=== PATIENT | male | born 1995 | race African-American/Black ===

== ENCOUNTER 2023-11-06 13:55 | Outpatient (CLI) | payer OTHER ==
--- NOTE | 2023-11-06 14:33 | Sleep Patient Instructions ---
Sleep Center Visit Summary - Patient Visit Information Reason for Visit: Initial consult for evaluation of sleep disordered breathing and other sleep issues. - Patient Instructions Instructions Attached: Sleep Study, Sleep Study Home Monitor Additional Instructions: You will be completing a sleep study, either an in-lab polysomnography (PSG) or home sleep study (HST). You will follow-up in the sleep care office after the sleep study is completed to hear the results and talk about therapy, if needed. You will be called by our office staff to schedule this appointment, but you may contact us with any questions. - Clinic Information Contact: [facility] [address] [place] [id number] [email or web address] T: [phone]
[2023-11-06 14:36] VITALS: BP 105/74; O2SAT 98
--- NOTE | 2023-11-06 14:36 | SLEEP CARE CONSULTATION ---
Information from patient questionnaire entered by Renetta Hurley. I have reviewed and concur with the information entered by Renetta Hurley. This document represents the service I personally performed and the decisions made by me, Anastasia Fitzgerald ARNP. History of Present Illness Service Date and Time: 11/06/2023 1355 Reason for Visit: New patient Chief Complaint: reports: Unrefreshed sleep, Snoring, Excessive daytime sleepiness, Frequent awakenings at night Date of Onset: 4-5 months Usual bedtime: 9PM (now, 11 PM) Time it takes to fall asleep: 60MIN+ Snores at night: Yes Observed to quit breathing while asleep: Yes Sleeps alone due to snoring: No Number of times waking at night: 2-3 Reasons for waking at night: reports: Snoring, Gasping for air, Bathroom ( ), Other (NOISE) Toss, Turn, or Twitch while sleeping: Yes Recalls having dreams: No Usually gets out of bed at: [id number] (now, [id number]) Feels refreshed in the morning: No Morning headache: Yes (2 times a week; last about 30 minutes) Sleepy or fatigued during the day: Yes Ever fallen asleep while driving: No Takes day naps: No Dreams during day naps: No Prior sleep studies: No Additional HPI information: I had the pleasure of seeing OSMEL PECK today regarding the possibility of him having a sleep disorder. His current complaints are unrefreshed sleep, snoring, excessive daytime sleepiness and frequent night awakenings. He says in the last 4-5 months or more he has not been getting good sleep. His job in [employer] changes his schedule frequently. He says he is tired throughout the day and is a little unfocused. His tells him that he is snoring loudly and she will wake him up to turn over. She has also noted choking sounds when he is sleeping. He is waking in the morning feeling tired and unrefreshed. - Parasomnia Symptoms Ever been unable to move upon waking from sleep: No Walks in sleep: No Talks in sleep: Yes Ever acted out dreams in sleep: No Ever felt weak in the knees when startled or emotional: No Bothered by creepy, crawly, restless sensations in legs: No Problems with memory or concentration: Yes (both) Subjective Initial [place] Sleepiness Scale score: 12 (09/30/23) Past Medical History Past Medical History: reports: Anxiety, Other (CONSTANT HEADACHES) Social History The patient's occupation is a AM. Patient is and lives in [place]. Have you smoked in the past 12 months: No (vaped) Quit date: 2019 Alcohol use: Yes Alcohol amount and frequency: A GLASS OR TWO WEEKENDS Caffeine use: No Family History Family history of sleep disordered breathing: Yes Family Hx Sleep Apnea: Mother: Snoring, Sleep apnea - Treated, Grandparent: Snoring, Sleep apnea - Treated Allergies and Home Medications Known drug allergies: No Drug allergies reviewed: Yes Home medication list reviewed: Yes (as listed) Review of Systems Weight gain over past 5 years: 15 Cardiovascular: denies: high blood pressure Gastrointestinal: reports: heartburn, nausea Neurological: reports: headaches Psychiatric: reports: anxiety Ear/Nose/Throat: reports: nasal congestion, sinus problems, dry mouth/throat, wisdom teeth removed. denies: tonsillectomy Endocrine: reports: sluggishness, increased appetite Musculoskeletal: reports: joint pain, back pain Immunologic: reports: sneezing Physical Exam Vital signs obtained and entered by: RENETTA Obrien MA Blood Pressure: 105/74 (RIGHT ARM) Cuff size: regular Heart Rate: 67 O2 Saturation: 98 Height: 6 ft Weight: 161 lb 3.2 oz Body Mass Index: 21.8 BMI Classification: Normal Neck circumference: 15 Mouth and throat: narrow oropharynx Soft palate: long Hard palate: normal Uvula: normal Uvula visualization: 50% Mallampati Class II Tongue: enlarged in size with teeth ho on lateral edges Tonsils: small Neck: normal w/o lymphadenopathy or thyromegaly Heart: regular rate and rhythm Lungs: clear bilaterally Impression and Plan 1. Suspected Obstructive Sleep Apnea-Hypopnea Syndrome, as suggested by a history of loud and irregular snoring, gasping or choking in sleep, morning headache, frequent awakening during the night, unrefreshed sleep, cognitive impairment, and excessive daytime sleepiness. Narrow oropharynx and obesity are common predisposing factors for obstructive sleep apnea-hypopnea syndrome. I recommend proceeding to polysomnography to confirm the diagnosis and to assess severity. If the patient has significant sleep disordered breathing, a manual CPAP titration study will also be performed to find the optimal treatment pressure. I informed the patient of what the sleep studies involve and after some discussion, obtained agreement to proceed. The pathophysiology of obs tructive sleep apnea-hypopnea syndrome was discussed with the patient and health risks of cardiovascular and cerebrovascular disease if not treated. Risks of drowsy driving discussed in detail and patient advised to avoid long distance driving and to hook puller at the first sign of drowsiness. Patient agreed to plan. * Schedule polysomnography * Avoid long distance driving or driving when feeling sleepy. * Avoid alcohol, sedative and muscle relaxant around bedtime. * Review instructions provided by trained office staff on how to prepare for the sleep study. * Return for follow-up after sleep study completed. Plan: PSG and followup Visit Type: In Office Time Spent with Patient (minutes): 30 Provider Statement: I spent 100% of the Face to Face Visit with the patient with greater than 50% spent counseling the patient and coordination of care.
== END 2023-11-06 13:56 | disposition home or self-care (01) ==
LOC: SC 13:55
PROVIDERS: ATTEND Nurse Practitioner Family
DX: R06.83 Snoring (principal); R51.9 Headache, unspecified; G47.8 Other sleep disorders; R41.89 Other symptoms and signs involving cognitive functions and awareness; G47.10 Hypersomnia, unspecified
CPT/HCPCS: 99203; 99212

== ENCOUNTER 2023-12-13 19:45 | Outpatient (CLI) | payer OTHER | END 2023-12-13 19:46 | disposition home or self-care (01) | LOC: SC 19:45 | PROVIDERS: ATTEND Nurse Practitioner Family | DX: G47.63 Sleep related bruxism (principal) | CPT/HCPCS: 95810 ==

== ENCOUNTER 2023-12-18 20:42 | Outpatient (CLI) | payer OTHER ==
--- NOTE | 2023-12-19 14:41 | Ultrasound Report ---
PROCEDURE: Soft Tissue Head or Neck INDICATIONS: ENLARGED LYMPH NODE LEFT ANTERIOR CERVICAL CHAIN TECHNIQUE: Soft tissue ultrasound COMPARISON: None FINDINGS: At the area of concern in the left anterior neck, there is a enlarged lymph node measuring 3.0 x 1.6 x 2.3 cm there is capsular irregularity and heterogenous internal echotexture. IMPRESSION: Left anterior neck adenopathy. Advise follow-up CT neck with contrast Reviewed by: Keith Pope MD on 12/19/2023 1:40 PM SANDRO Approved by: Keith Pope MD on 12/19/2023 1:40 PM SANDRO Station ID: [id number]
== END 2023-12-18 20:43 | disposition home or self-care (01) ==
LOC: DI 20:42
DX: R59.0 Localized enlarged lymph nodes (principal)

== ENCOUNTER 2024-01-02 13:35 | Outpatient (CLI) | payer OTHER ==
--- NOTE | 2024-01-02 14:02 | Sleep Patient Instructions ---
Sleep Center Visit Summary - Patient Visit Information Reason for Visit: Sleep study follow-up - Patient Instructions Instructions Attached: Bruxism Teeth Grind Additional Instructions: Your sleep study today was negative for significant sleep disordered breathing. You were found to have bruxism for which you should follow-up with your dentist for further evaluation and treatment as needed. Follow-up as needed. - Clinic Information Contact: [facility] [address] [place] [id number] [email or web address] T: [phone]
--- NOTE | 2024-01-02 14:05 | SLEEP CARE CONSULTATION ---
Information from patient questionnaire entered by Erin Valles. I have reviewed and concur with the information entered by Erin Valles. This document represents the service I personally performed and the decisions made by , Anastasia Fitzgerald ARNP. History of Present Illness Service Date and Time: 01/02/2024 1339 Initial [place] Sleepiness Scale score: 12 (09/30/23) Current [place] Sleepiness Scale score: 17 (01/02/24) Additional HPI information: OSMEL PECK returns for follow up and results of the recently performed polysomnography done on 12/13/23. The patient was informed of the following findings: No significant sleep di sordered breathing with an average AHI of 0 and morgan oxygen saturation of 93%. He was found to have bruxism. I explained the pathophysiology behind obstructive sleep apnea. Patient does not have sleep apnea and was advised how weight gain could increase the risk of developing sleep apnea in the future. Patient does not drink alcohol. Patient was cautioned about risks of drowsy driving until sleepiness symptoms resolve. Patient denies drowsy driving. Sleep Study - Results Prior sleep studies: No Polysomnography/Home Sleep Study results: IMPRESSION: The quality of the study is good. The patient had normal sleep efficiency. The sleep architecture was normal as well. Respiratory monitoring showed no evidence of sleep disordered breathing (AHI = 0.0) or hypoxia (morgan oxygen saturation of 93%). The patient slept adequately in supine position. No audible snore. There was no significant periodic leg movement of sleep. Cardiac rhythm was normal sinus rhythm with rare premature atrial contractions. There was bruxism. CONCLUSIONS and RECOMMENDATIONS: 1. Bruxism (ICD-10 G47.63). Treatment as necessary. 2. This is otherwise a normal in-laboratory polysomnography. Clinical correlation advised. Allergies and Home Medications Known drug allergies: No Drug allergies reviewed: Yes Home medication list reviewed: Yes (no changes) Allergy and home medication list: Allergies No Known Drug Allergies Allergy (Verified 11/03/23 13:51) Review of Systems Review of systems same as previous: Yes (no changes) Physical Exam Vital signs obtained and entered by: Anastasia Rivers NP Blood Pressure: 122/55 Cuff size: regular (right arm) Heart Rate: 60 O2 Saturation: 98 Height: 6 ft Weight: 163 lb 3.2 oz (with boots) Body Mass Index: 22.1 BMI Classification: Normal Impression and Plan 1. Bruxism. Bruxism is a condition characterized by the involuntary grinding or clenching of the teeth, often occurring during sleep. It can lead to various dental and health issues, including tooth wear, jaw pain, headaches, and temporomandibular joint (TMJ) disorders. I advised him to seek evaluation and treatment through his dentist. He voiced understanding. * Follow up with dentist for bruxism * Return as needed for follow up. Counseling Topics: Weight control Follow up with: Other (Dentist) Visit Type: In Office Time Spent with Patient (minutes): 17 Provider Statement: I spent 100% of the Face to Face Visit with the patient with greater than 50% spent counseling the patient and coordination of care.
[2024-01-02 14:28] VITALS: BP 122/55; O2SAT 98
== END 2024-01-02 13:36 | disposition home or self-care (01) ==
LOC: SC 13:35
PROVIDERS: ATTEND Nurse Practitioner Family
DX: G47.63 Sleep related bruxism (principal)
CPT/HCPCS: 99212